=== PATIENT | female | born 1970 | race Caucasian/White ===

== ENCOUNTER 2016-10-02 11:23 | Day surgery (SDC) | payer OTHER ==
[2016-09-16 11:20] VITALS: BMI 24.4
--- NOTE | 2016-10-02 11:08 | HP ---
[facility]ellite [facility] - Chief Complaint Chief Complaint: right shoulder pain - Past Medical History Allergies/Adverse Reactions: Allergies Allergy/AdvReac Type Severity Reaction Status Date / Time seasonal Allergy Uncoded 09/16/16 11:20 ...LMP: 09/11/16 - Current Medications Current Medications: Medication Instructions Recorded Oxycodone HCl/Acetaminophen 1 - 2 tab PO Q6H #50 tab MDD 8 10/02/16 [Percocet 5-325 mg Tablet -] Satellite Physical Exam - Physical Examination General Appearance: Well Nourished, Well Developed, Alert & Oriented x3 ENT: Clear Lung: Normal air movement Heart: Regular rate & rhythm Extremities: Other (right shoulder- + ttp, decr rom, + empty can, + neer, + earl, nvi MRI + rct) Neurological: Intact, Alert, Oriented Satellite Impression/Plan - Impression/Plan Impression: right shoulder rct Operative Procedure: right shoulder arthroscopy with RCR, SAD Date to be Performed: 10/02/16
[2016-10-02] MEDS ORDERED: ROPIVACAINE HCL 0.5% 30ML VIAL ONE (12:10)
[2016-10-02] MEDS ORDERED: MIDAZOLAM HCL 2 MG/2 ML SINGLE DOSE VIAL ONE ×3 (12:11→12:40)
[2016-10-02] MEDS ORDERED: PROPOFOL 20 ML ONE (12:40)
[2016-10-02] MEDS ORDERED: ROCURONIUM BROMIDE 50 MG/5 ML VIAL ONE (12:40)
[2016-10-02] MEDS ORDERED: ceFAZolin SODIUM 1 GM VIAL ONE ×2 (12:40→17:00)
[2016-10-02] MEDS ORDERED: SODIUM CHLORIDE 0.9% P/F 10 ML VIAL IJ ONE (12:40)
[2016-10-02] MEDS ORDERED: KETOROLAC TROMETHAMINE 30 MG/1 ML VIAL ONE (12:40)
[2016-10-02] MEDS ORDERED: DEXAMETHASONE SOD PHOSPHATE 4 MG/1 ML VIAL ONE (12:40)
[2016-10-02] MEDS ORDERED: ceFAZolin SODIUM 1 GM VIAL IVPB ONE (12:54)
--- NOTE | 2016-10-02 13:50 | OP ---
Operative Note - Note: Operative Date: 10/02/16 ([facility]) Pre-Operative Diagnosis: right shoulder rct Operation: right shoulder arthroscopy with RCR, SAD, extensive debridement of bone and soft tissue Implants: arthrex speedbridge Post-Operative Diagnosis: Same as Pre-op Surgeon: Mustapha Silverman Clinical Sociologist: Narayan Sandra Anesthesiologist/TRUCK CATERER: Porfirio Lemos Jr. Anesthesia: General, Local Specimens Removed: shavings Estimated Blood Loss (mls): 5 Operative Report Dictated: Yes
[2016-10-02 15:54] VITALS: TEMP 98.6
[2016-10-02] MEDS ORDERED: oxyCODONE HCL 5 MG TABLET PO PRN (16:22)
[2016-10-02] MEDS ORDERED: ONDANSETRON 4 MG/2 ML VIAL IVPUSH PRN (16:22)
[2016-10-02] MEDS ORDERED: LACTATED RINGERS SOLUTION 1,000 ML IV SCH (16:30)
[2016-10-02 17:49] VITALS: BP 127/75; PULSE 92
--- NOTE | 2016-10-03 09:32 | SPEC ---
DATE OF OPERATION: 10/02/2016 PREOPERATIVE DIAGNOSIS: Right rotator cuff tear. POSTOPERATIVE DIAGNOSIS: Right rotator cuff tear. PROCEDURE: Arthroscopy right shoulder with subacromial debridement of bone and soft tissue and arthroscopic right rotator cuff repair. SURGEON: Mustapha Silverman M.D. STILL OPERATOR GIN: PRIETO De Leon ANESTHESIA: Regional and general. CLOSURE: SpeedBridge with preloaded FiberTape for rotator cuff and 3-0 nylon for skin. ESTIMATED BLOOD LOSS: Negligible. COMPLICATIONS: None. CONDITION: To recovery room in stable condition. DESCRIPTION OF OPERATIVE PROCEDURE: Patient was taken to the operating room on October 02, 2016. Scalene block as well as general anesthesia was administered by the anesthesiologist. Intravenous Kefzol was administered prophylactically prior to the case. Patient was placed in the beach chair position with all prominences well padded. The right shoulder area was prepped and draped in the usual sterile fashion. First a diagnostic arthroscopy of the glenohumeral joint was performed. A posterior portal was made 2 fingerbreadths below the acromion, first with a 15 blade followed by a blunt trocar. Circumferential exam of the glenohumeral joint revealed the following: Intact glenoid and humeral articular cartilage, intact labrum circumferentially, intact biceps and biceps anchor. There were no loose bodies in the axillary pouch. Intact subscapularis to its insertion. Looking superiorly the shoulder had a rotator cuff tear in a crescent formation. The trocar was removed from the shoulder. Next, the posterior trocar was redirected in the subacromial space. An accessory lateral portal was made using a 15 blade followed by a blunt trocar. An anterior portal was made at the level of the AC joint with a spinal needle, a 15 blade, and a blunt trocar. An extensive bursectomy and debridement of soft tissue encasing the humeral head was performed using the ArthroCare device and the shaver. Extensive bone hanging down from the acromion was debrided using the Acromionizer kalin up to the appropriate level. The coracoacromial ligament was identified and detached off the anterior acromion and visualized to drop inferiorly and was further debrided. An acromioplasty was then performed using the Acromionizer kalin up to the appropriate level. All particular debris in the shoulder was debrided using the shaver. Soft tissue encasing the rotator cuff was debrided using the shaver and the ArthroCare device exposing the rotator cuff tear beneath. The leading edge of the rotator cuff was debrided using the shaver. The greater tuberosity was cleaned of soft tissue, and a thin layer of bone was removed giving a nice bleeding surface for the rotator cuff repair. Two medial row anchors with pre-loaded FiberTape suture were malleted down at the articular margin and shuttled through the anterior portal. Each anchor had two limbs of the FiberTape suture. Individually they were shuttled back to the lateral portal. They were passed in a fanned-out position through the rotator cuff using the Affibody suture passer. After this was done, one of the posterior sutures was passed more anteriorly, and one of the anterior sutures was passed posteriorly. They were both passed through the eyelet hole of the lateral anchors and then malleted and screwed into place, both anteriorly and posteriorly. This pulled the rotator cuff down and matted it down to the greater tuberosity. The sutures were cut snug. Probing revealed excellent repair of the rotator cuff to the greater tuberosity. The shoulder was irrigated with copious amounts of irrigation. All three portals were closed with 3-0 nylon. A sterile pressure dressing following by a shoulder immobilizer was placed on the right upper extremity. The patient was awakened from anesthesia and transferred to the recovery room in stable condition. No complications. Estimated blood loss was negligible. Romero [id number]
--- NOTE | 2016-10-06 13:43 | PATH ---
Surgical Pathology Report Patient Name: GALINDO GEE [facility]. Rec. #: [id number] /Age/Gender: 1970 (Age: 46) / F Account: [id number] Location: [facility] SURGICAL Taken: 10/02/2016 Received: 10/05/2016 Reported: 10/06/2016 Physicians: Mustapha Silverman M.D. Specimen(s) Received SHAVINGS RIGHT SHOULDER Clinical History Rotator cuff tear right shoulder Final Diagnosis SOFT TISSUE, RIGHT SHOULDER, ARTHROSCOPY SHAVING: SYNOVIUM AND FIBROCARTILAGE WITH MYXOHYALINE DEGENERATION. FRAGMENTS OF UNREMARKABLE BONE AND SKELETAL MUSCLE. Electronically Signed Osbaldo Tucker M.D. Gross Description Received in formalin, labeled "right shoulder shavings" is a 3.5 x 2.5 x 0.4 cm aggregate of cantu-yellow soft tissue fragments. A retention representative portion is submitted in one cassette. /10/05/201610/05/2016
== END 2016-10-02 18:10 | disposition home or self-care (01) ==
LOC: JASU-SURG 11:23
PROVIDERS: ATTEND Orthopaedic Surgery
PROC: 0RBJ4ZZ Excision of Right Shoulder Joint, Percutaneous Endoscopic Approach (ICD-10-PCS; principal; 2016-10-02 13:00)
PROC: 0LQ14ZZ Repair Right Shoulder Tendon, Percutaneous Endoscopic Approach (ICD-10-PCS; 2016-10-02 13:00)
DX: M75.101 Unspecified rotator cuff tear or rupture of right shoulder, not specified as traumatic (principal)
CPT/HCPCS: 84703; 88304-TC; 94760

== ENCOUNTER 2018-10-21 07:55 | Day surgery (SDC) | payer OTHER ==
[2018-10-05 10:14] VITALS: BMI 25.4
--- NOTE | 2018-10-21 08:11 | HP ---
Satellite [facility] - Chief Complaint Chief Complaint: left shoulder pain - Past Medical History Allergies/Adverse Reactions: Allergies Allergy/AdvReac Type Severity Reaction Status Date / Time mold Allergy Verified 10/21/18 08:09 No Known Drug Allergies Allergy Verified 10/21/18 08:09 pollen extracts Allergy Verified 10/21/18 08:09 COCKROACHES Allergy Uncoded 10/21/18 08:09 DUST Allergy Uncoded 10/21/18 08:09 ...LMP: 09/11/16 - Current Medications Current Medications: Home Medications Medication Instructions Recorded Mv-Mn/Folic Acid/Vit K/[id number] 1 each PO DAILY 10/05/18 [Alive Once Daily Women 50 Plus] Satellite Physical Exam - Physical Examination General Appearance: Well Nourished, Well Developed, Alert & Oriented x3 ENT: Clear Lung: Normal air movement Heart: Regular rate & rhythm Extremities: Other (left shoulder- + ttp, decr rom, + empty can, + neer, + earl, nvi MRI + rct) Neurological: Intact, Alert, Oriented Satellite Impression/Plan - Impression/Plan Impression: left shoulder rct Operative Procedure: left shoulder arthroscopy with RCRSTUART Date to be Performed: 10/21/18
[2018-10-21] MEDS ORDERED: BUPIVACAINE HCL/PF 0.5% (5MG/ML) 10 ML VIAL ONE (09:17)
[2018-10-21] MEDS ORDERED: MIDAZOLAM HCL 2 MG/2 ML SINGLE DOSE VIAL ONE (09:22)
[2018-10-21] MEDS ORDERED: ROPIVACAINE HCL 0.5% 30ML VIAL ONE (09:22)
[2018-10-21] MEDS ORDERED: ceFAZolin SODIUM 1 GM VIAL ONE (10:21)
[2018-10-21] MEDS ORDERED: ePHEDrine SULFATE 50 MG/1 ML AMPULE ONE (10:55)
--- NOTE | 2018-10-21 11:14 | OP ---
Operative Note - Note: Operative Date: 10/21/18 ([facility]) Pre-Operative Diagnosis: left shoulder rct Operation: left shoulder arthroscopy with RCR, SAD Implants: 2 arthrex swivelocks Post-Operative Diagnosis: Same as Pre-op Surgeon: Mustapha Silverman Visual Supervisor: Narayan Sandra Anesthesiologist/DATA REPORTING ANALYST: David Self Anesthesia: Local, MAC Specimens Removed: shavings Estimated Blood Loss (mls): 5 Operative Report Dictated: Yes
[2018-10-21] MEDS ORDERED: ONDANSETRON 4 MG/2 ML VIAL IVPUSH ONE (11:37)
[2018-10-21] MEDS ORDERED: ONDANSETRON 4 MG/2 ML VIAL ONE (11:42)
[2018-10-21] MEDS ORDERED: ONDANSETRON 4 MG/2 ML VIAL IVPUSH PRN (11:48)
[2018-10-21] MEDS ORDERED: oxyCODONE HCL 5 MG TABLET PO PRN ×2 (11:48)
[2018-10-21] MEDS ORDERED: LACTATED RINGERS SOLUTION 1,000 ML IV SCH (12:00)
[2018-10-21 12:28] VITALS: TEMP 98.3
[2018-10-21 15:58] VITALS: BP 130/75; PULSE 79
--- NOTE | 2018-10-21 23:04 | OP ---
DATE OF OPERATION: 10/21/2018 PREOPERATIVE DIAGNOSIS: Left rotator cuff. POSTOPERATIVE DIAGNOSIS: Left rotator cuff. PROCEDURE: Arthroscopy, left shoulder with subacromial decompression and arthroscopic rotator cuff repair. SURGICAL ATTENDING: Mustapha Silverman MD COAL HIKER: PRIETO De Leon ANESTHESIA: Regional and general. CLOSURE: SutureTape and SwiveLoc anchors for rotator cuff and 3-0 nylon for the skin. ESTIMATED BLOOD LOSS: Negligible. COMPLICATIONS: None. CONDITION: Recovery room in stable condition. DESCRIPTION OF OPERATIVE PROCEDURE: The patient was taken to the operating room on October 21, 2018. Regional and general anesthesia was administered by the anesthesiologist. IV Kefzol was administered prophylactically prior to the case. The left shoulder area was prepped and draped in the usual sterile fashion. First, a diagnostic arthroscopy of the glenohumeral joint was performed. A posterior portal was made 2 fingerbreadths below the acromion first with a 15 blade followed by blunt trocar. Circumferential exam revealed the following: Intact glenoid and humeral head articular cartilage, intact labrum circumferentially, intact biceps and biceps anchor, intact subscapularis to its insertion. No loose bodies in the axillary pouch. Rotator cuff, supraspinatus, infraspinatus appeared to be mostly intact around the articular vantage point. The fluid was drained from the shoulder, and trocar was removed. The posterior trocar was redirected in the subacromial space, and accessory lateral portal was made with a 15 blade blunt trocar. A large amount of bursal tissue was encountered and was debrided using the ArthroCare device. Coracoacromial ligament was identified and detached off the inferiorly. This was further debrided, and a large anterior spur was encountered in the acromion, and acromioplasty was then performed using the bur to the appropriate level getting sutures for the rotator cuff. Soft tissue encasing the humeral head was debrided using the shaver and the ArthroCare device. The rotator cuff was found to be hanging on by a thread. Small probing of the insertion site of the infraspinatus revealed that the probe easily went into the shoulder joint. This area was debrided exposing the rotator cuff, which was not large at all and was not displaced. The bed was cleaned with shaver and burred with a bur to stimulate some bleeding bone for implantation. The Scorpion self-retrieving suture punch was used to place 2 horizontal mattress SutureTape sutures, 1 more anteriorly, 1 more posteriorly around 1-1/2 cm from the cut surface of the rotator cuff. These sutures were placed through islet holes of SwiveLoc anchors, 1 anteriorly, 1 posteriorly, which were malleted and then screwed into the lateral aspect of the humerus pulling the rotator cuff down to the greater tuberosity. The sutures were cut snug with the bone after probing revealed external fixation. Range of motion revealed excellent clearance of the subacromial space. The fluid was drained from the shoulder. The portals were closed with 3-0 nylon horizontal mattress suture with an Aquacel dressing followed by a shoulder immobilizer to the left upper extremity. The patient was awakened from anesthesia and transferred to the recovery room in stable condition. No complications. Estimated blood loss negligible. Romero [id number]
== END 2018-10-21 15:25 | disposition home or self-care (01) ==
LOC: FASU 07:55
PROVIDERS: ATTEND Orthopaedic Surgery
PROC: 0LQ24ZZ Repair Left Shoulder Tendon, Percutaneous Endoscopic Approach (ICD-10-PCS; principal; 2018-10-21 09:30)
PROC: 0RNK4ZZ Release Left Shoulder Joint, Percutaneous Endoscopic Approach (ICD-10-PCS; 2018-10-21 09:30)
DX: M75.102 Unspecified rotator cuff tear or rupture of left shoulder, not specified as traumatic (principal)
CPT/HCPCS: 84703; 94760